=== PATIENT | female | born 1980 | race Caucasian/White ===

== ENCOUNTER 2016-10-31 04:58 | Emergency (ER) | payer OTHER ==
[~2016-10-31] VITALS: Ht 167.6 cm; Wt 86.1 kg
[~2016-10-31 04:58] MED LIST: WELLTAB39 PO
[2016-10-31] MEDS ORDERED: TYLELIQ PO (05:10)
[2016-10-31 05:11] VITALS: BP 117/83; PULSE 111; RESP 20; TEMP 101.6; O2SAT 99
[2016-10-31 05:24] VITALS: PULSE 102; O2SAT 99
--- NOTE | 2016-10-31 05:34 | PD ---
HPI Chief Complaint: Cold / Flu Symptoms Time Seen by Provider: 05:23 Travel History International Travel<30 days: No Contact w/Intl Traveler<30days: No Traveled to known affect area: No History of Present Illness HPI The patient is a 35-year-old female that has for 2 days fever, cough, myalgias in her back and chest congestion. She denies any shortness of breath. The sore throat is 6/10. She denies any possibility of . PFSH Past Medical History Depression: Yes Diminished Hearing: No Tetanus Vaccination: > 5 Years Influenza Vaccination: No ?: Not LMP: 09/30/16 : 2 Para: 2 Ovarian Cysts: Yes Past Surgical History Oral Surgery: Yes (WISDOM TEETH X 4 IN 2007) Social History Alcohol Use: No Tobacco Use: No Substance Use: No Allergies-Medications (Allergen,Severity, Reaction): Coded Allergies: No Known Allergies (Verified , 10/31/16) Reported Meds & Prescriptions Reported Meds & Active Scripts Active Reported Tylenol Cold Multi-Symptom Liq (Lqtvvmmqdyszhykg-Kenykmgbwgtih-Fgzsqprv Liq) 10- 5-325 Mg/15 Ml Liq 30 Ml PO Q4H PRN Review of Systems Except as stated in HPI: all other systems reviewed are Neg Physical Exam Narrative GENERAL: The patient is alert, oriented 3 in slight apparent distress with her sore throat. Her vital signs show temperature 101.6 with heart rate 111 but are otherwise normal. SKIN: Warm and dry. No skin rash is seen. HEAD: Atraumatic. Normocephalic. EYES: Pupils equal and round. No scleral icterus. No injection or drainage. ENT: No nasal bleeding or discharge. Mucous membranes pink and moist. The throat is red without exudate or abscess. The tympanic membranes are clear. NECK: Trachea midline. No JVD. CARDIOVASCULAR: Regular rate and rhythm. No murmur appreciated. RESPIRATORY: No accessory muscle use. Clear to auscultation. Breath sounds equal bilaterally. GASTROINTESTINAL: Abdomen soft, non-tender, nondistended. Hepatic and splenic margins not palpable. No guarding or rebound is present. MUSCULOSKELETAL: No obvious deformities. No clubbing. No cyanosis. No edema. NEUROLOGICAL: Awake and alert. No obvious cranial nerve deficits. Motor grossly within normal limits. Normal speech. PSYCHIATRIC: Appropriate mood and affect; insight and judgment normal. Data Data Last Documented VS Vital Signs Date Time Temp Pulse Resp B/P Pulse Ox O2 Delivery O2 Flow Rate FiO2 10/31/16 05:24 102 99 Room Air 10/31/16 05:24 20 10/31/16 05:11 101.6 117/83 Orders Group A Rapid Strep Screen (10/31/16 05:23) Influenzae A/B Antigen (10/31/16 05:31) Acetaminophen (Tylenol) (10/31/16 05:45) MDM Medical Decision Making Medical Screen Exam Complete: Yes Emergency Medical Condition: Yes Medical Record Reviewed: Yes Interpretation(s) The strep screen is negative for group A strep antigen. The influenza a/B antigen is positive for flu a antigen. Differential Diagnosis Viral syndrome, flu syndrome, strep pharyngitis, pneumonia, bronchitis, ear infection, viral pharyngitis Narrative Course The patient has influenza A. It is over 2 days now and Tamiflu is not indicated. The patient will be given prescription for Motrin and she should also take Tylenol, increase liquids and rest. She will be given a four-day work excuse. Diagnosis Primary Impression: Influenza A Additional Instructions: As we discussed, Motrin, Tylenol, rest of the mainstay of treatment for the flu. We will get you a 4 day work excuse. I will write you a prescription for Motrin 600 mg which he take 3 times daily. Follow-up next week with her primary care physician. Remember that the flu can reduce her resistance to other infections like pneumonia. If you get worse you may need a reevaluation. Med/Other Pt SpecificInfo: Prescription(s) given Scripts Ibuprofen 600 Mg [id number] Mg PO TID #40 TAB Ref 0 Prov:Raymon Richmond MD 10/31/16 Disposition: 01 DISCHARGE HOME Condition: Stable Raymon Richmond MD Oct 31, 2016 05:34
[2016-10-31] MEDS ORDERED: ACETAMINOPHEN 500 MG CPLT PO ONE (05:45)
[2016-10-31 06:18] VITALS: PULSE 99; RESP 18; TEMP 99.6; O2SAT 100
[2016-10-31] MEDS ORDERED: IBUP-232 PO (06:22)
== END 2016-10-31 06:34 | disposition home or self-care (01) ==
LOC: PHED 04:58
DX: J09.X2 Influenza due to identified novel influenza A virus with other respiratory manifestations (principal); R50.9 Fever, unspecified; M79.1 Myalgia
CPT/HCPCS: 87081; 87804; 87880; 99283

== ENCOUNTER 2017-01-23 16:59 | Emergency (ER) | payer OTHER ==
[~2017-01-23] VITALS: Ht 167.6 cm; Wt 81.0 kg
[~2017-01-23 16:59] MED LIST changes: +IBUP-232 PO; +TYLELIQ PO; -WELLTAB39 PO
[2017-01-23 17:05] VITALS: BP 105/71; PULSE 94; RESP 16; TEMP 98.6; O2SAT 100
--- NOTE | 2017-01-23 17:23 | PD ---
HPI Chief Complaint: GI Complaint Time Seen by Provider: 17:11 Travel History International Travel<30 days: No Contact w/Intl Traveler<30days: No Traveled to known affect area: No History of Present Illness HPI This is a 36-year-old female who presents to the emergency department with an episode of bloody stool today. She reports that she has been having loose stools for the past 2 days that she self describes as diarrhea and today she had blood mixed into her stool which she has never seen before. She says the blood was dark and maroon colored. She says this morning when she woke up she felt very lightheaded. She says for months she's been having intermittent epigastric discomfort which she's been ignoring, mild, not postprandial, with no associated vomiting but some nausea. Her sister has a history of Crohn's disease and she has a grandmother who has a history of colon cancer. She's not on any blood thinners and is otherwise healthy. PFSH Past Medical History Hx Anticoagulant Therapy: No Depression: Yes Diabetes: No Diminished Hearing: No ?: Not : 2 Para: 2 Ovarian Cysts: Yes Past Surgical History Oral Surgery: Yes (WISDOM TEETH X 4 IN 2007) Social History Alcohol Use: No Tobacco Use: No Substance Use: No Allergies-Medications (Allergen,Severity, Reaction): Coded Allergies: No Known Allergies (Verified , 01/23/17) Reported Meds & Prescriptions Reported Meds & Active Scripts Active Reported Adipex-P (Phentermine HCl) 37.5 Mg Tab 37.5 Mg PO DAILY Review of Systems Except as stated in HPI: all other systems reviewed are Neg Physical Exam Narrative GENERAL:Well appearing, no acute distress SKIN: Warm and dry. HEAD: Atraumatic. Normocephalic. EYES: Pupils equal and round. No injection or drainage. ENT: Moist mucous membranes NECK: Trachea midline. CARDIOVASCULAR: Regular rate and rhythm. No murmur appreciated. RESPIRATORY: Clear to auscultation. Breath sounds equal bilaterally. GASTROINTESTINAL: Abdomen soft, mildly tender to palpation in the epigastrium with no rebound or guarding. MUSCULOSKELETAL: No obvious deformities. NEUROLOGICAL: Awake and alert. No obvious cranial nerve deficits. Moving all extremities. PSYCHIATRIC: Appropriate mood and affect; insight and judgment normal. Data Data Last Documented VS Vital Signs Date Time Temp Pulse Resp B/P Pulse Ox O2 Delivery O2 Flow Rate FiO2 3/28/17 17:05 98.6 94 16 105/71 100 Orders Complete Blood Count With Diff (01/23/17 17:21) Basic Metabolic Panel (Bmp) (01/23/17 17:21) ^ Insert Iv (01/23/17 17:21) Labs Laboratory Tests Test 01/23/17 17:45 White Blood Count 8.3 TH/MM3 Red Blood Count 3.85 MIL/MM3 Hemoglobin 11.3 GM/DL Hematocrit 34.4 % Mean Corpuscular Volume 89.5 FL Mean Corpuscular Hemoglobin 29.4 PG Mean Corpuscular Hemoglobin 32.8 % Concent Red Cell Distribution Width 13.1 % Platelet Count 222 TH/MM3 Mean Platelet Volume 10.2 FL Neutrophils (%) (Auto) 63.8 % Lymphocytes (%) (Auto) 25.6 % Monocytes (%) (Auto) 8.1 % Eosinophils (%) (Auto) 1.0 % Basophils (%) (Auto) 1.5 % Neutrophils # (Auto) 5.3 TH/MM3 Lymphocytes # (Auto) 2.1 TH/MM3 Monocytes # (Auto) 0.7 TH/MM3 Eosinophils # (Auto) 0.1 TH/MM3 Basophils # (Auto) 0.1 TH/MM3 CBC Comment DIFF FINAL Differential Comment Sodium Level 141 MEQ/L Potassium Level 3.4 MEQ/L Chloride Level 105 MEQ/L Carbon Dioxide Level 27.6 MEQ/L Anion Gap 8 MEQ/L Blood Urea Nitrogen 11 MG/DL Creatinine 0.53 MG/DL Estimat Glomerular Filtration 130 ML/MIN Rate Random Glucose 89 MG/DL Calcium Level 8.6 MG/DL [facility] Medical Decision Making Medical Screen Exam Complete: Yes Emergency Medical Condition: Yes Interpretation(s) Afebrile, mild tachycardia Hemoglobin is 11.3 BUN is normal Differential Diagnosis Hemorrhoid, anal fissure, inflammatory bowel disease, ulcer, gastritis Narrative Course This is a 36-year-old female who presents to the emergency department with an episode of blood mixed into her stool. She's been having loose stools for several days. She has chronic epigastric abdominal pain which she's never been evaluated for. She does have family history of Crohn's disease as well as colon cancer. She is very well-appearing on exam. Hemoglobin is within the lower limits of normal. She has a negative Hemoccult on my exam. I think she is safe to be followed up with GI as an outpatient. I do think she requires endoscopy and colonoscopy. She'll be discharged on Zantac. [facility] Point of Care Internal Pos. & Neg. Controls: Passed Fecal Specimen Occult Blood: Negative Diagnosis Primary Impression: Bloody stool Referrals: [facility] call for appointment Patient Instructions: General Instructions Additional Instructions: If you develop lightheadedness, dizziness, have blood filling her toilet or your bleeding increases return to the emergency department. Follow-up with a management trainee marketing as soon as possible. Med/Other Pt SpecificInfo: Prescription(s) given Scripts Ranitidine 150 Mg [id number] Mg PO BID #60 TAB Ref 0 Prov:Rashmi Linares MD 01/23/17 Disposition: 01 DISCHARGE HOME Condition: Stable Rashmi Linares MD Jan 23, 2017 17:23
[2017-01-23] MEDS ORDERED: PHEN1TAB84 PO (17:34)
[2017-01-23 18:02] LABS: AUTOMATED NEUTROPHIL # 5.3 TH/MM3 (1.8-7.7); BASOPHIL # 0.1 TH/MM3 (0-0.2); BASOPHIL % 1.5 % (0.0-2.0); EOSINOPHIL # 0.1 TH/MM3 (0-0.4); HEMATOCRIT 34.4 % (35.0-46.0); HEMO FLAGS DIFF FINAL; LYMPH % 25.6 % (9.0-44.0); LYMPHOCYTE # 2.1 TH/MM3 (1.0-4.8); MEAN CELL VOLUME 89.5 FL (80.0-100.0); MEAN CORPUSCULAR HEMOGLOBIN 29.4 PG (27.0-34.0); MEAN CORPUSCULAR HGB CONC 32.8 % (32.0-36.0); MONO % 8.1 % (0.0-8.0); NEUT % 63.8 % (16.0-70.0); PLATELET COUNT 222 TH/MM3 (150-450); RED BLOOD COUNT 3.85 MIL/MM3 (4.00-5.30); RED CELL DISTRIBUTION WIDTH 13.1 % (11.6-17.2); WHITE BLOOD COUNT 8.3 TH/MM3 (4.0-11.0)
[2017-01-23 18:19] LABS: POTASSIUM 3.4 MEQ/L (3.5-5.1)
[2017-01-23 18:22] LABS: BICARBONATE 27.6 MEQ/L (21.0-32.0)
[2017-01-23] MEDS ORDERED: RANI150T PO (18:44)
[2017-01-23 19:21] VITALS: BP 110/70
== END 2017-01-23 19:23 | disposition home or self-care (01) ==
LOC: PHED 16:59
DX: K92.1 Melena (principal)
CPT/HCPCS: 80048; 85025; 99284